=== PATIENT | female | born 1965 | race Caucasian/White ===

== ENCOUNTER → 2016-12-02 | Outpatient (CLI) | payer BC, OTHER ==
[~2016-12-02] MED LIST: CTLP20T PO; DEXL60CA5 PO; SCR1T PO
--- NOTE | 2016-12-03 15:45 | Diagnostic Imaging Report ---
Bilateral screening mammogram 2D views with tomosynthesis The current study was also evaluated with a Computer Aided Detection (CAD) system. INDICATION: Screening. No current complaints stated on the questionnaire. COMPARISON: 08/10/2014. FINDINGS: The breasts are composed of scattered fibroglandular densities. Punctate calcifications are seen. Allowing for technique and positional differences, no suspicious change is seen. IMPRESSION: No significant change. ACR BI-RADS Category 2: Benign findings. Result letter will be mailed to the patient. Note: At least 10% of breast cancer is not imaged by mammography. Dictated by: Dictated on workstation # [id number]
== END ==
LOC: RAD 14:43
PROVIDERS: ATTEND Obstetrics & Gynecology
DX: Z12.31 Encounter for screening mammogram for malignant neoplasm of breast (principal)
CPT/HCPCS: 77067

== ENCOUNTER → 2017-04-05 | Outpatient (CLI) | payer BC ==
--- NOTE | 2017-04-05 19:41 | Diagnostic Imaging Report ---
INDICATION: Right upper quadrant abdominal pain. Gallbladder sonography performed in the routine fashion. FINDINGS: The liver shows normal echogenicity with no focal lesion. Gallbladder was unremarkable with no gallstones or wall thickening. Common duct measured 4 mm. Pancreas is not well-seen due to overlying gas. Right kidney measured 8.5 cm in length and showed no hydronephrosis. There is no ascites. Portal vein is patent. IMPRESSION: Unremarkable gallbladder sonography. Dictated by: Dictated on workstation # [id number]
== END ==
LOC: RAD 15:09
PROVIDERS: ATTEND Nurse Practitioner Family
DX: R10.11 Right upper quadrant pain (principal)
CPT/HCPCS: 76705

== ENCOUNTER 2017-04-10 13:15 | Emergency (ER) | payer BC ==
[~2017-04-10] VITALS: Ht 167.6 cm; Wt 86.2 kg
--- OUTSIDE RECORDS SUMMARY | 2017-04-10 13:20 | XMS REPORT | Continuity of Care Document ---
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 11/05/2010 Ot 620.1 CORPUS LUTEUM CYST 11/05/2010 Ot 621.2 HYPERTROPHY OF UTERUS 11/05/2010 Ot 625.6 FEM STRESS INCONTINENCE 03/25/2012 Ot 455.0 INT HEMORRHOID W/O COMPL 03/25/2012 Ot 530.11 REFLUX ESOPHAGITIS 03/25/2012 Ot 535.40 OTH SPECIFIED GASTRITIS,W/O MENTION OF H 03/25/2012 Ot 553.3 DIAPHRAGMATIC HERNIA 03/25/2012 Ot 562.10 DIVERTICULOSIS COLON (W/O MENT OF HEMORR 03/25/2012 Ot 564.00 UNSPEC CONSTIPATION 03/25/2012 Ot 787.91 DIARRHEA 08/10/2014 Ot 611.89 08/10/2014 Ot V76.12 08/10/2014 Ot V76.12 08/10/2014 Ot 285.9 08/10/2014 Ot 621.2 08/10/2014 Ot 625.6 08/10/2014 Ot V72.63 08/10/2014 Ot V74.8 08/10/2014 Ot 786.2 08/10/2014 Ot V72.84 08/10/2014 Ot 562.10 08/10/2014 Ot 789.00 08/10/2014 Ot 789.00 08/10/2014 Ot 789.00 08/10/2014 Ot 786.50 08/10/2014 LAWANDA BRUCE MD Ot 397.0 08/10/2014 LAWANDA BRUCE MD Ot 424.0 08/10/2014 LAWANDA BRUCE MD Ot 786.09 08/10/2014 AJNIS CLEVELAND, LAWANDA Portillo Ot 786.50 08/10/2014 KELLEN GUTIERREZ VACUUM DRIER TENDER Ot 786.09 08/10/2014 KELLEN GUTIERREZ VACUUM DRIER TENDER Ot 787.20 08/10/2014 KELLEN GUTIERREZ R VACUUM DRIER TENDER Ot 789.00 08/10/2014 KELLEN GUTIERREZ R VACUUM DRIER TENDER Ot 786.09 08/10/2014 KELLEN GUTIERREZ VACUUM DRIER TENDER Ot 787.20 08/10/2014 KELLEN GUTIERREZ VACUUM DRIER TENDER Ot 789.00 08/10/2014 CRUZ CLEVELAND, PAT Bobby Ot V76.12 08/14/2014 CRUZ CLEVELAND, PAT Bobby Ot V76.12 03/06/2015 CRUZ CLEVELAND, PAT Bobby Ot V76.12 11/01/2015 Ot V76.12 OTH SCREEN MAMMO-MALIGN NEOPLASM OF [place] 11/01/2015 Ot 285.9 ANEMIA NOS 11/01/2015 Ot 621.2 HYPERTROPHY OF UTERUS 11/01/2015 Ot 625.6 FEM STRESS INCONTINENCE 11/01/2015 Ot V72.63 PRE-PROCEDURAL LABORATORY EXAMINATION 11/01/2015 Ot V74.8 SCREEN-BACTERIAL DIS NEC 11/01/2015 Ot 786.2 COUGH 11/01/2015 Ot V72.84 EXAM PRE-OPERATIVE NOS 11/01/2015 Ot 562.10 DIVERTICULOSIS COLON (W/O MENT OF HEMORR 11/01/2015 Ot 789.00 ABDOMINAL PAIN, UNSPECIFIED SITE 11/01/2015 Ot 789.00 ABDOMINAL PAIN, UNSPECIFIED SITE 11/01/2015 Ot 789.00 ABDOMINAL PAIN, UNSPECIFIED SITE 11/01/2015 Ot 786.50 CHEST PAIN NOS 11/01/2015 LAWANDA BRUCE MD Ot 397.0 TRICUSPID VALVE DISEASE 11/01/2015 LAWANDA BRUCE MD Ot 424.0 MITRAL VALVE DISORDER 11/01/2015 LAWANDA BRUCE MD Ot 786.09 RESPIRATORY ABNORM NEC 11/01/2015 LAWANDA BRUCE MD Ot 786.50 CHEST PAIN NOS 11/01/2015 KELLEN GUTIERREZ APRN Ot 786.09 RESPIRATORY ABNORM NEC 11/01/2015 KELLEN GUTIERREZ VACUUM DRIER TENDER Ot 787.20 DYSPHAGIA, UNSPECIFIED 11/01/2015 MATT, KELLEN R VACUUM DRIER TENDER Ot 789.00 ABDOMINAL PAIN, UNSPECIFIED SITE 11/01/2015 KELLEN GUTIERREZ VACUUM DRIER TENDER Ot 786.09 RESPIRATORY ABNORM NEC 11/01/2015 KELLEN GUTIERREZ VACUUM DRIER TENDER Ot 787.20 DYSPHAGIA, UNSPECIFIED 11/01/2015 KELLEN GUTIERREZ VACUUM DRIER TENDER Ot 789.00 ABDOMINAL PAIN, UNSPECIFIED SITE 11/01/2015 CRUZ CLEVELAND, PAT G Ot V76.12 OTH SCREEN MAMMO-MALIGN NEOPLASM OF [place] 11/06/2015 Ot V76.12 OTH SCREEN MAMMO-MALIGN NEOPLASM OF [place] 11/06/2015 Ot 285.9 ANEMIA NOS 11/06/2015 Ot 621.2 HYPERTROPHY OF UTERUS 11/06/2015 Ot 625.6 FEM STRESS INCONTINENCE 11/06/2015 Ot V72.63 PRE-PROCEDURAL LABORATORY EXAMINATION 11/06/2015 Ot V74.8 SCREEN-BACTERIAL DIS NEC 11/06/2015 Ot 786.2 COUGH 11/06/2015 Ot V72.84 EXAM PRE-OPERATIVE NOS 11/06/2015 Ot 562.10 DIVERTICULOSIS COLON (W/O MENT OF HEMORR 11/06/2015 Ot 789.00 ABDOMINAL PAIN, UNSPECIFIED SITE 11/06/2015 Ot 789.00 ABDOMINAL PAIN, UNSPECIFIED SITE 11/06/2015 Ot 789.00 ABDOMINAL PAIN, UNSPECIFIED SITE 11/06/2015 Ot 786.50 CHEST PAIN NOS 11/06/2015 JANIS CLEVELAND, LAWANDA Portillo Ot 397.0 TRICUSPID VALVE DISEASE 11/06/2015 LAWANDA BRUCE MD Ot 424.0 MITRAL VALVE DISORDER 11/06/2015 LAWANDA BRUCE MD Ot 786.09 RESPIRATORY ABNORM NEC 11/06/2015 LAWANDA BRUCE MD Ot 786.50 CHEST PAIN NOS 11/06/2015 KELLEN GUTIERREZ VACUUM DRIER TENDER Ot 786.09 RESPIRATORY ABNORM NEC 11/06/2015 KELLEN GUTIERREZ VACUUM DRIER TENDER Ot 787.20 DYSPHAGIA, UNSPECIFIED 11/06/2015 KELLEN GUTIERREZ VACUUM DRIER TENDER Ot 789.00 ABDOMINAL PAIN, UNSPECIFIED SITE 11/06/2015 KELLEN GUTIERREZ VACUUM DRIER TENDER Ot 786.09 RESPIRATORY ABNORM NEC 11/06/2015 KELLEN GUTIERREZ VACUUM DRIER TENDER Ot 787.20 DYSPHAGIA, UNSPECIFIED 11/06/2015 KELLEN GUTIERREZ VACUUM DRIER TENDER Ot 789.00 ABDOMINAL PAIN, UNSPECIFIED SITE 11/06/2015 CRUZ CLEVELAND, PAT Bobby Ot V76.12 OTH SCREEN MAMMO-MALIGN NEOPLASM OF [place] 01/06/2016 Ot V76.12 OTH SCREEN MAMMO-MALIGN NEOPLASM OF [place] 01/06/2016 Ot 285.9 ANEMIA NOS 01/06/2016 Ot 621.2 HYPERTROPHY OF UTERUS 01/06/2016 Ot 625.6 FEM STRESS INCONTINENCE 01/06/2016 Ot V72.63 PRE-PROCEDURAL LABORATORY EXAMINATION 01/06/2016 Ot V74.8 SCREEN-BACTERIAL DIS NEC 01/06/2016 Ot 786.2 COUGH 01/06/2016 Ot V72.84 EXAM PRE-OPERATIVE NOS 01/06/2016 Ot 562.10 DIVERTICULOSIS COLON (W/O MENT OF HEMORR 01/06/2016 Ot 789.00 ABDOMINAL PAIN, UNSPECIFIED SITE 01/06/2016 Ot 789.00 ABDOMINAL PAIN, UNSPECIFIED SITE 01/06/2016 Ot 789.00 ABDOMINAL PAIN, UNSPECIFIED SITE 01/06/2016 Ot 786.50 CHEST PAIN NOS 01/06/2016 JANIS CLEVELAND, LAWANDA Portillo Ot 397.0 TRICUSPID VALVE DISEASE 01/06/2016 LAWANDA BRUCE MD Ot 424.0 MITRAL VALVE DISORDER 01/06/2016 JNAIS CLEVELAND, LAWANDA Portillo Ot 786.09 RESPIRATORY ABNORM NEC 01/06/2016 JANIS CLEVELAND, LAWANDA Portillo Ot 786.50 CHEST PAIN NOS 01/06/2016 KELLEN GUTIERREZ VACUUM DRIER TENDER Ot 786.09 RESPIRATORY ABNORM NEC 01/06/2016 KELLEN GUTIERREZ VACUUM DRIER TENDER Ot 787.20 DYSPHAGIA, UNSPECIFIED 01/06/2016 KELLEN GUTIERREZ VACUUM DRIER TENDER Ot 789.00 ABDOMINAL PAIN, UNSPECIFIED SITE 01/06/2016 KELLEN GUTIERREZ VACUUM DRIER TENDER Ot 786.09 RESPIRATORY ABNORM NEC 01/06/2016 KELLEN GUTIERREZ VACUUM DRIER TENDER Ot 787.20 DYSPHAGIA, UNSPECIFIED 01/06/2016 KELLEN GUTIERREZ VACUUM DRIER TENDER Ot 789.00 ABDOMINAL PAIN, UNSPECIFIED SITE 01/06/2016 CRUZ CLEVELAND, PAT Bobby Ot V76.12 OTH SCREEN MAMMO-MALIGN NEOPLASM OF [place] 12/01/2016 PAT ARROYO MD Ot V76.12 OTH SCREEN MAMMO-MALIGN NEOPLASM OF [place] 12/01/2016 PAT ARROYO MD, Ot V76.12 OT SCREEN MAMMO-MALIGN NEOPLASM OF [place] 12/16/2016 PAT ARROYO MD Ot Z12.31 ENCNTR SCREEN MAMMOGRAM FOR MALIGNANT NE 04/05/2017 PAT ARROYO MD, Ot Z12.31 ENCNTR SCREEN MAMMOGRAM FOR MALIGNANT NE Procedures Code Description Performed By Performed On 59.79 11/03/2010 65.61 11/03/2010 68.51 11/03/2010 70.50 11/03/2010 77250 ROUTINE VENIPUNCTURE 01/05/2014 31892 HEMOGLOBIN (IN-HOUSE) 01/05/2014 31882 GLUCOSE FINGER STICK 01/05/2014 44696 LIPID PANEL 01/05 Results Encounters ACCT No. Visit Date/Time Discharge Status Pt. Type Provider Facility Loc./Unit Complaint [id number] 01/05/2014 10:14:00 01/05/2014 23: 59:59 CLS Outpatient GERMÁN MARLIN WU [id number] 04/05/2017 15:09:00 2016 23:59:59 CLS Outpatient ELVIRA MEANS APRN [facility] RAD RIGHT UPPER QUADRANT PAIN [id number] 12/02/2016 14:43:00 2016 23:59:59 CLS Outpatient PAT ARROYO MD [facility] RAD SCREENING [id number] 08/10/2014 14:54:00 2014 23:59:59 CLS Outpatient PAT ARROYO MD [facility] RAD SCREENING [id number] 02/24/2013 15:28:00 2012 23:59:59 CLS Outpatient PAT ARROYO MD [facility] RAD SCREENING [id number] 09/26/2012 09:58:00 2012 23:59:59 CLS Outpatient KELLEN GUTIERREZ APRN [facility] RAD ABD PAIN,CYSTAGIC [id number] 09/22/2012 14:32:00 2012 23:59:59 CLS Outpatient KELLEN GUTIERREZ APRN [facility] LAB ABDOMINAL PAIN [id number] 09/06/2012 12:21:00 2012 23:59:59 CLS Outpatient JANIS CLEVELAND, LAWANDA Portillo [facility] CP,DYSPNEA [id number] 08/10/2014 14:52:00 Document Registration [id number] 08/10/2014 14:52:00 Document Registration [id number] 08/10/2014 14:52:00 Document Registration [id number] 08/10/2014 14:52:00 Document Registration [id number] 08/10/2014 14:52:00 Document Registration [id number] 08/10/2012 15:36:00 Document Registration [id number] 06/23/2012 08:16:00 Document Registration [id number] 05/16/2012 15:10:00 Document Registration [id number] 03/25/2012 09:47:00 Document Registration [id number] 02/23/2011 15:51:00 Document Registration [id number] 11/03/2010 05:45:00 Document Registration [id number] 10/30/2010 12:56:00 Document Registration [id number] 09/01/2010 08:18:00 Document Registration
--- OUTSIDE RECORDS SUMMARY | 2017-04-10 13:20 | XMS REPORT ---
Author CONCETTA Akers Organization [employer] Address Unknown Phone Unavailable Care Team Providers Care Digital Imaging Technician Name Role Phone CONCETTA JOYCE CP Unavailable Allergies No Known Allergies Problems Problem Type Condition Code Onset Dates Condition Status Assessment Encounter for immunization Z23 Active Medications No Known Medications Procedures Procedure Coding System Code Date FLUARIX QUAD (3 & UP)-GSK-2014 CPT-4 77615 Mar 19, 2015 SINGLE IMMUNIZATION ADMIN CPT-4 99124 Mar 19, 2015 TDAP (BOOSTRIX) CPT-4 62386 Mar 19, 2015 IMMUNIZATION ADMIN, EACH ADD (please include units) CPT-4 64418 Mar 19, 2015 Results No Known Results Immunizations Vaccine Administration Date FLUARIX QUAD (3 & UP)-GSK-2014Mar 19, 2015 TDAP (BOOSTRIX) Mar 19, 2015 Summary Purpose [employer] Submission
[2017-04-10] MEDS ORDERED: ONDANSETRON 4 MG/2 ML (SDV) Z0FRAN IVP ONE (13:45)
[2017-04-10] MEDS ORDERED: fentaNYL INJECTION 100 MCG/2 ML AMP IVP ONE ×2 (13:45→15:45)
--- NOTE | 2017-04-10 13:48 | ED General ---
General Chief Complaint: General Problems/Pain Stated Complaint: SOA Nursing Triage Note: ARRIVED VIA AMB TO ROOM 06. COMPLAINS OF CONTINUING RIGHT UPPER ABD PAIN THAT RADIATES INTO MUNIRA BACK. COMPLAINS OF SOA WITH IT. STATES SHE HAS HAD HER GALLBLADDER CHECKED OUT AND IT IS NOT THAT. THE DR JUST DX HER WITH SOME OF KIND OF INFECTION "SOMEWHERE". Nursing Sepsis Screen: No Definite Risk Source of Information: Patient Exam Limitations: No Limitations History of Present Illness Time Seen by Provider: 13:45 Initial Comments To ER with c/o right sided abdominal pain and epigastric pain sudden onset about 45 minutes ago while vacuuming. Associated nausea, no vomiting. Diarrhea x1. Has had this problem intermittently for years with workups including EGD, colonoscopy, RUQ US, HIDA scan without answer. Pain is worsened by deep breathing, she then presents shallow and she states that her hands start to tingle. Timing/Duration: 1-3 Hours Severity: Moderate Associated Systoms: Nausea/Vomiting Allergies and Home Medications Allergies Coded Allergies: Penicillins (Unverified Allergy, Unknown, RASH, 04/10/17) Home Medications Citalopram Hydrobromide 20 Mg Tablet, 1 EACH PO HS, (Reported) Dexlansoprazole 60 Mg , 60 MG PO DAILY, (Reported) Sucralfate 1 Gm/10 Ml Susp, 2 TSP PO AC, (Reported) Constitutional: see HPI, No chills, No fever EENTM: see HPI Respiratory: see HPI, short of breath Cardiovascular: no symptoms reported Gastrointestinal: abdominal pain, nausea Genitourinary: no symptoms reported Musculoskeletal: no symptoms reported Skin: no symptoms reported Psychiatric/Neurological: No Symptoms Reported Hematologic/Lymphatic: No Symptoms Reported Immunological/Allergic: no symptoms reported Past Yctgdyf-Txfdzf-Osrqwp Hx Patient Social History Alcohol Use: Denies Use Recreational Drug Use: No Smoking Status: Never a Smoker Recent Foreign Travel: No Contact w/Someone Who Travel: No Recent Infectious Disease Expo: No Recent Hopitalizations: No Immunizations Up To Date Date of Influenza Vaccine: Feb 23, 2012 Surgeries History of Surgeries: Yes Surgeries: Hysterectomy Respiratory History of Respiratory Disorde: No Cardiovascular History of Cardiac Disorders: No (BLOOD CLOT) Cardiac Disorders: Heart Murmur Neurological History of Neurological Disord: No Reproductive System Hx Reproductive Disorders: Yes (UTEROMEGALY, FIBROIDS) Gastrointestinal History of Gastrointestinal Di: No Musculoskeletal History of Musculoskeletal Dis: No Endocrine History of Endocrine Disorders: Yes Endocrine Disorders: Hypothyroidsim Psychosocial History of Psychiatric Problem: Yes Blood Transfusions History of Blood Disorders: Yes (HX OF BLOOD CLOT IN 1998) Physical Exam Vital Signs Vital Sign - Last 12Hours 04/10/17 13:31 Temp 98.0 Pulse 89 Resp 18 B/P (MAP) 165/84 (111) Pulse Ox 100 Capillary Refill : Less Than 3 Seconds General Appearance: No Apparent Distress, WD/WN Eyes: Bilateral Eye Normal Inspection, Bilateral Eye PERRL, Bilateral Eye EOMI HEENT: PERRL/EOMI, TMs Normal Neck: Full Range of Motion, Normal Inspection, Non Tender Respiratory: Normal Breath Sounds, No Accessory Muscle Use, No Respiratory Distress Cardiovascular: Regular Rate, Rhythm, Normal Peripheral Pulses Gastrointestinal: Normal Bowel Sounds, Soft, Tenderness Extremity: Normal Capillary Refill, Normal Inspection Neurologic/Psychiatric: Alert, Oriented x3, No Motor/Sensory Deficits Skin: Normal Color, Warm/Dry Progress/Results/Core Measures Suspected Sepsis Recent Fever Within 48 Hours: No Infection Criteria Present: Documented Infection New/Unexplained Altered Menta: No Sepsis Screen: No Definite Risk Sepsis Diagnosis: SIRS Temperature:98.0 Pulse: 89 Respiratory Rate: 18 Laboratory Tests 04/10/17 14:00: White Blood Count 21.7H Blood Pressure 165 /84 Mean: 111 Laboratory Tests 04/10/17 14:00: Creatinine 0.94, Platelet Count 223, Total Bilirubin 0.5 Results/Orders Lab Results Laboratory Tests Test 04/10/17 14:00 04/10/17 14:51 Range/Units White Blood Count 21.7 H 4.3-11.0 10^3/uL Red Blood Count 4.72 4.35-5.85 10^6/uL Hemoglobin 14.0 11.5-16.0 G/DL Hematocrit 41 35-52 % Mean Corpuscular Volume 86 80-99 FL Mean Corpuscular Hemoglobin 30 25-34 PG Mean Corpuscular Hemoglobin Concent 34 32-36 G/DL Red Cell Distribution Width 12.3 10.0-14.5 % Platelet Count 223 130-400 10^3/uL Mean Platelet Volume 11.8 H 7.4-10.4 FL Neutrophils (%) (Auto) 94 H 42-75 % Lymphocytes (%) (Auto) 5 L 12-44 % Monocytes (%) (Auto) 1 0-12 % Eosinophils (%) (Auto) 0 0-10 % Basophils (%) (Auto) 0 0-10 % Neutrophils # (Auto) 20.3 H 1.8-7.8 X 10^3 Lymphocytes # (Auto) 1.1 1.0-4.0 X 10^3 Monocytes # (Auto) 0.3 0.0-1.0 X 10^3 Eosinophils # (Auto) 0.0 0.0-0.3 10^3/uL Basophils # (Auto) 0.0 0.0-0.1 10^3/uL D-Dimer 0.33 0.00-0.49 UG/ML Sodium Level 140 135-145 MMOL/L Potassium Level 3.8 3.6-5.0 MMOL/L Chloride Level 102 98-107 MMOL/L Carbon Dioxide Level 25 21-32 MMOL/L Anion Gap 13 5-14 MMOL/L Blood Urea Nitrogen 12 7-18 MG/DL Creatinine 0.94 0.60-1.30 MG/DL Estimat Glomerular Filtration Rate > 60 BUN/Creatinine Ratio 13 Glucose Level 97 70-105 MG/DL Calcium Level 9.4 8.5-10.1 MG/DL Total Bilirubin 0.5 0.1-1.0 MG/DL Aspartate Amino Transf (AST/SGOT) 12 5-34 U/L Alanine Aminotransferase (ALT/SGPT) 13 0-55 U/L Alkaline Phosphatase 79 40-136 U/L Total Protein 7.9 6.4-8.2 GM/DL Albumin 4.2 3.2-4.5 GM/DL Lipase 34 8-78 U/L Urine Color YELLOW Urine Clarity CLEAR Urine pH 7 5-9 Urine Specific Holder 1.010 L 1.016-1.022 Urine Protein NEGATIVE NEGATIVE Urine Glucose (UA) NEGATIVE NEGATIVE Urine Ketones NEGATIVE NEGATIVE Urine Nitrite NEGATIVE NEGATIVE Urine Bilirubin NEGATIVE NEGATIVE Urine Urobilinogen NORMAL NORMAL MG/DL Urine Leukocyte Esterase NEGATIVE NEGATIVE Urine RBC (Auto) NEGATIVE NEGATIVE Urine RBC NONE /HPF Urine WBC NONE /HPF Urine Squamous Epithelial Cells 0-2 /HPF Urine Crystals NONE /LPF Urine Bacteria NEGATIVE /HPF Urine Casts NONE /LPF Urine Mucus NEGATIVE /LPF Urine Culture Indicated NO My Orders Orders - NIEVES WEBB HVAC SERVICE TECH Cbc With Automated Diff (04/10/17 13:44) Comprehensive Metabolic Panel (04/10/17 13:44) Lipase (04/10/17 13:44) Saline Lock/Iv-Start (04/10/17 13:44) Ua Culture If Indicated (04/10/17 13:44) Ondansetron Injection (Zofran Injectio (04/10/17 13:45) Fentanyl Injection (Sublimaze Injection (04/10/17 13:45) Iohexol Injection (Omnipaque 350 Mg/Ml 1 (04/10/17 14:00) Ns (Ivpb) (Sodium Chloride 0.9% Ivpb Bag (04/10/17 14:00) Fibrin Degradation Products (04/10/17 14:05) Manual Differential (04/10/17 14:00) Ct Chest/Abdomen/Pelvis W (04/10/17 14:16) Ketorolac Injection (Toradol Injection) (04/10/17 15:00) Hydrocodone/Apap 5/325 Tablet (Lortab 5 (04/10/17 15:00) Medications Given in ED Current Medications Medications Dose Ordered Sig/Maroc A Route Start Time Stop Time Status Last Admin Dose Admin Fentanyl Citrate 50 mcg ONCE ONCE IVP 04/10/17 13:45 04/10/17 13:46 DC 04/10/17 13:59 50 MCG Iohexol 100 ml ONCE ONCE IV 04/10/17 14:00 04/10/17 14:01 DC 04/10/17 14:44 100 ML Ondansetron HCl 4 mg ONCE ONCE IVP 04/10/17 13:45 04/10/17 13:46 DC 04/10/17 13:59 4 MG Sodium Chloride 100 ml ONCE ONCE IV 04/10/17 14:00 04/10/17 14:01 DC 04/10/17 14:44 80 ML Vital Signs/I&O Vital Sign - Last 12Hours 04/10/17 13:31 Temp 98.0 Pulse 89 Resp 18 B/P (MAP) 165/84 (111) Pulse Ox 100 Capillary Refill : Less Than 3 Seconds Blood Pressure Mean: 111 Diagnostic Imaging Diagonstic Imaging: CT Comments NAME: JESUS JOSEPH MED REC#: [id number] PT STATUS: REG ER : 1965 PHYSICIAN: NIEVES WEBB APRN ADMIT DATE: 04/10/17/ER Draft Date of Exam:04/10/17 CT CHEST/ABDOMEN/PELVIS W PROCEDURE: CT chest, abdomen, and pelvis with contrast. TECHNIQUE: Multiple contiguous axial images were obtained through the chest, abdomen, and pelvis after the administration of intravenous contrast. INDICATION: Right lower quadrant pain. The previous CT abdomen/pelvis exam of 05/17/2012 noted diverticulosis of the sigmoid colon but failed to show any sign of acute diverticulitis. On this study, there are a few diverticula involving the sigmoid and descending colon. There is still no evidence for acute diverticulitis. The appendix was visualized and is not abnormally thickened. There is no pelvic mass or free fluid collection. As noted on the prior exam, the uterus is surgically absent. The urinary bladder is grossly unremarkable. The liver is homogeneous and not enlarged. The spleen, pancreas, adrenals, kidneys, gallbladder, aorta and inferior vena cava show no sign of an acute abnormality. The stomach is not well-distended and consequently difficult to assess. The images through the thorax show the heart size is within normal limits. Aorta is not abnormally dilated and there is no sign of dissection. 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 There is no definite defect within the pulmonary arteries to indicate a pulmonary embolus. There is no mediastinal or hilar adenopathy. There are patchy areas of increased density in both the right middle lobe and lingula. These findings may be related to mild pneumonia/atelectasis. There is no pleural effusion identified. The thyroid gland is unremarkable. There is no obvious breast mass. The bone windows show no sign of a fracture or destructive lesion. There does seem to be osteitis pubis. IMPRESSION: 1. There is diverticulosis of the sigmoid and descending colon but there is no sign of acute diverticulitis. 2. There is no acute abnormality of the abdomen or pelvis noted otherwise. 3. The areas of increased density in the right middle lobe and lingula may be related to mild pneumonia/atelectasis. Clinical followup is recommended. 4. There is no acute cardiopulmonary abnormality noted otherwise. 5. 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 Dictated on workstation # [id number] Dict: 04/10/17 1452 Trans: 04/10/17 1502 KB [id number] Interpreted by: SUNNI ABERNATHY MD Electronically signed by: Departure Impression Impression: Primary Impression: diverticulitis of the descending and transverse colon Additional Impression: Right middle lobe pneumonia Disposition: 01 HOME, SELF-CARE Condition: Stable Departure-Patient Inst. Decision time for Depature: 14:56 Referrals: BENJA GARCIA DO (PCP/Family) Primary Care Physician Patient Instructions: Community-Acquired Pneumonia in Adults, Diverticulitis Add. Discharge Instructions: 1. Clear liquids only for the next 24 hours. This would be anything that you can see through.nausea medication as needed in addition to the antibiotics and pain medication. Return to ER if the nausea prevents you from being able to take the antibiotics. Follow-up with Dr. Garcia next week. All discharge instructions reviewed with patient and/or family. Voiced understanding. Scripts Metronidazole (Flagyl) 500 Mg Tablet 500 MG PO TID, #15 TAB Prov: NIEVES WEBB APRN 04/10/17 Levofloxacin (Levaquin) 500 Mg Tablet 500 MG PO DAILY for 5 Days, TAB Prov: NIEVES WEBB APRN 04/10/17 Hydrocodone/Acetaminophen ([place] 5-325 Tablet) 1 Each Tablet 1 EACH PO Q4H Y for PAIN-SEVERE, #14 TAB Prov: NIEVES WEBB APRN 04/10/17 NIEVES WEBB APRN Apr 10, 2017 13:48
[2017-04-10] MEDS ORDERED: IOHEXOL 350 MG/ML 100 ML (OMNIPAQUE 350) VIAL IV ONE (14:00)
[2017-04-10] MEDS ORDERED: NS 100 ML (IVPB) BAG IV ONE (14:00)
[2017-04-10 14:11] LABS: BASOPHILS % (AUTO) 0 % (0-10); EOSINOPHILS % (AUTO) 0 % (0-10); LYMPHOCYTES # (AUTO) 1.1 X 10^3 (1.0-4.0); LYMPHOCYTES % (AUTO) 5 % (12-44); MEAN CORPUSCULAR HEMOGLOBIN 30 PG (25-34); MEAN CORPUSCULAR HGB CONC 34 G/DL (32-36); MEAN CORPUSCULAR VOLUME 86 FL (80-99); MEAN PLATELET VOLUME 11.8 FL (7.4-10.4); MONOCYTES # (AUTO) 0.3 X 10^3 (0.0-1.0); MONOCYTES % (AUTO) 1 % (0-12); NEUTROPHILS # (AUTO) 20.3 X 10^3 (1.8-7.8); NEUTROPHILS % (AUTO) 94 % (42-75); PLATELET COUNT 223 10^3/uL (130-400); RED BLOOD COUNT 4.72 10^6/uL (4.35-5.85); RED CELL DISTRIBUTION WIDTH 12.3 % (10.0-14.5); WHITE BLOOD COUNT 21.7 10^3/uL (4.3-11.0)
[2017-04-10 14:27] LABS: ALANINE AMINOTRANSFERASE 13 U/L (0-55); ALBUMIN 4.2 GM/DL (3.2-4.5); ANION GAP 13 MMOL/L (5-14); ASPARTATE AMINO TRANSFERASE 12 U/L (5-34); BILIRUBIN,TOTAL 0.5 MG/DL (0.1-1.0); BLOOD UREA NITROGEN 12 MG/DL (7-18); BUN/CREATININE RATIO 13; CALCIUM 9.4 MG/DL (8.5-10.1); CARBON DIOXIDE 25 MMOL/L (21-32); CHLORIDE 102 MMOL/L (98-107); CREATININE SERUM 0.94 MG/DL (0.60-1.30); GFR ESTIMATED > 60; GLUCOSE 97 MG/DL (70-105); LIPASE 34 U/L (8-78); POTASSIUM 3.8 MMOL/L (3.6-5.0); SODIUM 140 MMOL/L (135-145); TOTAL PROTEIN 7.9 GM/DL (6.4-8.2)
[2017-04-10 14:57] LABS: BILIRUBIN,URINE NEGATIVE (NEGATIVE); KETONES,URINE NEGATIVE (NEGATIVE); LEUKOCYTE ESTERASE ,URINE NEGATIVE (NEGATIVE); NITRITE,URINE NEGATIVE (NEGATIVE); PH,URINE 7 (5-9); PROTEIN,URINE NEGATIVE (NEGATIVE); UROBILINOGEN,URINE NORMAL (NORMAL)
[2017-04-10] MEDS ORDERED: KETOROLAC 30 MG/ML VIAL IVP ONE (15:00)
[2017-04-10] MEDS ORDERED: HYDROcodone/APAP 5 MG/325 MG (LORTAB) TAB PO ONE (15:00)
--- NOTE | 2017-04-10 15:03 | Diagnostic Imaging Report ---
PROCEDURE: CT chest, abdomen, and pelvis with contrast. TECHNIQUE: Multiple contiguous axial images were obtained through the chest, abdomen, and pelvis after the administration of intravenous contrast. INDICATION: Right lower quadrant pain. The previous CT abdomen/pelvis exam of 05/17/2012 noted diverticulosis of the sigmoid colon but failed to show any sign of acute diverticulitis. On this study, there are again a few diverticula involving the sigmoid and descending colon. There are other diverticula also scattered throughout the remainder of the colon, particularly in the region of the hepatic flexure. There is still no evidence for acute diverticulitis involving any segment of the colon, however.. The appendix was visualized and is not abnormally thickened. There is no pelvic mass or free fluid collection. As noted on the prior exam, the uterus is surgically absent. The urinary bladder is grossly unremarkable. The liver is homogeneous and not enlarged. The spleen, pancreas, adrenals, kidneys, gallbladder, aorta and inferior vena cava show no sign of an acute abnormality. The stomach is not well-distended and consequently difficult to assess. The images through the thorax show the heart size is within normal limits. Aorta is not abnormally dilated and there is no sign of dissection. 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 There is no definite defect within the pulmonary arteries to indicate a pulmonary embolus. There is no mediastinal or hilar adenopathy. There are patchy areas of increased density in both the right middle lobe and lingula. These findings may be related to mild pneumonia/atelectasis. There is no pleural effusion identified. The thyroid gland is unremarkable. There is no obvious breast mass. The bone windows show no sign of a fracture or destructive lesion. There does seem to be osteitis pubis. IMPRESSION: 1. There is diverticulosis of the colon, particularly the sigmoid and descending colon, but there is no sign of acute diverticulitis. 2. There is no acute abnormality of the abdomen or pelvis noted otherwise. 3. The areas of increased density in the right middle lobe and lingula may be related to mild pneumonia/atelectasis. Clinical followup is recommended. 4. There is no acute cardiopulmonary abnormality noted otherwise. 5. 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 6. These results were discussed with Gaurav Coello APRN. Dictated by: Dictated on workstation # [id number]
[2017-04-10 15:21] LABS: SQUAMOUS EPITHELIAL CELL,UR 0-2 /HPF
[2017-04-10 15:35] LABS: BAND NEUTROPHILS 3 %; LYMPHOCYTES % (MANUAL) 4 %; NEUTROPHILS % (MANUAL) 92 %
[2017-04-10 15:36] LABS: STOMATOCYTES SLIGHT
[2017-04-10] MEDS ORDERED: LEVO500T2 PO (15:37)
[2017-04-10] MEDS ORDERED: HYDR-757 PO (15:37)
[2017-04-10] MEDS ORDERED: METR500T PO (15:37)
[2017-04-10] MEDS ORDERED: metroNIDAZOLE 500 MG (FLAGYL) TAB PO ONE (15:45)
[2017-04-10] MEDS ORDERED: LEVOFLOXACIN 750 MG TAB (LEVAQUIN) PO ONE (15:45)
[2017-04-10 16:01] VITALS: BP 168/84
== END 2017-04-10 16:01 | disposition home or self-care (01) ==
LOC: EDUNIT# 13:15 → ER 13:16
DX: K57.32 Diverticulitis of large intestine without perforation or abscess without bleeding (principal); J18.1 Lobar pneumonia, unspecified organism; E03.9 Hypothyroidism, unspecified
CPT/HCPCS: 36415; 71260; 74177; 80053; 81000; 83690; 85007; 85027; 85379; 99282

== ENCOUNTER → 2017-04-16 | Outpatient (CLI) | payer BC ==
[~2017-04-16] MED LIST changes: +ATRACURIUM 50 MG/5 ML (TRACRIUM) IV ONE; +CATHETER FLUSH 10 ML SYR IV PRN; +CHOL3000 PO; +DULO60CA58 PO; +ESTR1TAB24 PO; +HYDR-3812 PO; +HYDR-757 PO; +LEVO500T2 PO; +LEVO50TA6 PO; +MAGN84TA5 PO; +METR500T PO
--- NOTE | 2017-04-16 13:28 | Diagnostic Imaging Report ---
INDICATION: Right upper quadrant pain. FINDINGS: 5.3 mCi of tech-99M Choletec was given IV. There is prompt uptake by the liver. There is prompt visualization of the gallbladder with free flow of isotope through the common duct into the small bowel. Patient was given 8 ounces of ensure. Following fatty meal images were obtained for 60 minutes. There was an ejection fraction calculated to be 16% at one hour post fatty meal. IMPRESSION: 1. The common bile duct and cystic ducts are patent. 2. Hypokinetic response of the gallbladder to fatty meal. Dictated by: Dictated on workstation # [id number]
== END ==
LOC: CARD 10:50
PROVIDERS: ATTEND Surgery
DX: R10.11 Right upper quadrant pain (principal); R11.0 Nausea
CPT/HCPCS: 78227

== ENCOUNTER → 2017-04-19 | Outpatient (CLI) | payer BC ==
[~2017-04-19] MED LIST changes: -ATRACURIUM 50 MG/5 ML (TRACRIUM) IV ONE; -CATHETER FLUSH 10 ML SYR IV PRN
== END ==
LOC: PREOP 11:18
PROVIDERS: ATTEND Surgery
DX: Z01.818 Encounter for other preprocedural examination (principal); K82.8 Other specified diseases of gallbladder

== ENCOUNTER 2017-04-20 10:24 | Day surgery (SDC) | payer BC ==
[~2017-04-20] VITALS: Ht 167.6 cm; Wt 83.9 kg
[~2017-04-20 10:24] MED LIST changes: -CHOL3000 PO; -DULO60CA58 PO; -ESTR1TAB24 PO; -HYDR-3812 PO; -LEVO50TA6 PO; -MAGN84TA5 PO
[2017-04-20] MEDS ORDERED: BUP/EPI 0.5% 1:200,000 (MARCAINE) 10ML VIAL IJ ONE (10:45)
[2017-04-20 10:46] VITALS: BP 147/80
[2017-04-20] MEDS ORDERED: SEVOFLURANE (ULTANE) 15 ML INHAL SOLN ONE ×5 (10:49→13:15)
[2017-04-20] MEDS ORDERED: proPOfol 200 MG/20 ML (DIPRIVAN) VIAL IV ONE (10:49)
[2017-04-20] MEDS ORDERED: HURRICAINE EXT TUBE (BENZOCAINE) ONE (10:49)
[2017-04-20] MEDS ORDERED: LIDOCAINE PF 2% 5 ML (XYLOCAINE) VIAL ONE (10:49)
[2017-04-20] MEDS ORDERED: DEXAMETHASONE 10 MG/ML (DECADRON) 1 ML VIAL ONE (10:49)
[2017-04-20] MEDS ORDERED: ATRACURIUM 50 MG/5 ML (TRACRIUM) IV ONE (10:50)
[2017-04-20] MEDS ORDERED: fentaNYL INJECTION 100 MCG/2 ML AMP ONE (10:50)
[2017-04-20] MEDS ORDERED: FAMOTIDINE 20MG/2ML IV (PEPCID) IV ONE (11:00)
[2017-04-20] MEDS ORDERED: MIDAZOLAM 2 MG/2 ML (VERSED) VIAL IV ONE (11:00)
[2017-04-20] MEDS ORDERED: metroNIDAZOLE 500 MG/100 ML IVPB (PRE-MIX) IV ONE (11:15)
[2017-04-20] MEDS: LACTATED RINGERS 1,000 ML IV PRN ×2 (11:24→13:16)
[2017-04-20] MEDS ORDERED: LEVOFLOXACIN 500 MG/D5W 100 ML (PRE-MIX) IV ONE (11:30)
[2017-04-20] MEDS ORDERED: CATHETER FLUSH 10 ML SYR IV PRN (11:30)
[2017-04-20] MEDS ORDERED: LEVO50TA6 PO (12:39)
[2017-04-20] MEDS ORDERED: ESTR1TAB24 PO (12:39)
[2017-04-20] MEDS ORDERED: DULO60CA58 PO (12:39)
[2017-04-20] MEDS ORDERED: MAGN84TA5 PO (12:39)
[2017-04-20] MEDS ORDERED: CHOL3000 PO (12:39)
[2017-04-20] MEDS ORDERED: ESMOLOL 100 MG/10 ML (BREVIBLOC) VIAL ONE (13:04)
--- NOTE | 2017-04-20 13:33 | Progress Note-Pre Operative ---
Pre-Operative Progress Note H&P Reviewed The H&P was reviewed, patient examined and no changes noted. Date Seen by Provider: Apr 15, 2017 Time Seen by Provider: 16:55 Date H&P Reviewed: Apr 20, 2017 Time H&P Reviewed: 11:55 Pre-Operative Diagnosis: Chronic acalculous cholecystitis JOCELINE RUSSELL MD Apr 20, 2017 1:32 pm
[2017-04-20] MEDS ORDERED: HYDR-3812 PO (13:37)
--- NOTE | 2017-04-20 13:37 | Operative Report ---
Operative Report Date of Procedure/Surgery Apr 20, 2017 Surgeon (s) JOCELINE RUSSELL MD [place] Machine Operator (s): N/A Post-Operative Diagnosis Same Procedure Performed Robotic-assisted cholecystectomy Description of Procedure Anesthesia Type: General Estimated blood loss (mL): Minimal Specimen(s) collected/removed Gallbladder Description of the Procedure Indication for the procedure: This lady presented with typical symptoms due to chronic acalculous cholecystitis. She was therefore offered cholecystectomy using minimally invasive technique with robotic assistance. Informed consent was obtained after reviewing the operative details and complications of wound infection, bile leak and persistence of her symptoms Description of the procedure: She was placed supine on the operative table and general anesthesia induced using an endotracheal tube. Antibiotics were administered intravenously as prophylaxis against wound infection. Sequential compression devices were placed around her legs, to minimize the risk of venous thrombosis. Abdomen was prepared and draped in the usual sterile manner. A supraumbilical incision was made and pneumoperitoneum established using a Veress needle. Intra -abdominal pressure was maintained at 15 mmHg, using carbon dioxide insufflation. A 12 mm trocar was placed and anatomy visualized using the high definition, 3-dimensional laparoscope, associated with it into system. Omentum was adherent to the epigastric region of the abdominal wall. Under direct view , I placed an 8 mm trocar over each side of the abdomen, followed by a 5 mm trocar over the left upper quadrant. Omentum was taken down using a blunt grasper allowing adequate view of the gallbladder fossa. The robotic system was then docked in place. By fundus of the gallbladder was retracted cephalad and omentum, adherent to the body of the gallbladder was taken down using the cautery. Peritoneum overlying Calot"s triangle was incised using the hook cautery, delineating the cystic duct and the artery. Both were controlled between locking clips. Cholecystectomy was then completed using the same device. Gallbladder was then placed in an Endo Catch bag and removed via the supraumbilical trocar site. The fascia over this incision was closed using #1 Vicryl using a Prem Falcon device under direct view. Skin incisions were closed using 4-0 Vicryl, in a subcuticular fashion. 0.5 percent Marcaine with epinephrine was infiltrated along the incisions, both preemptively and at the conclusion of the operation. She tolerated the procedure well, was extubated in the operating room and taken to the recovery room in a stable condition. Findings of the Procedure See op report Allergies and Home Medications Allergies Coded Allergies: Penicillins (Unverified Allergy, Unknown, RASH, 04/10/17) Home Medications Cholecalciferol (Vitamin D3) 3,000 Unit Tablet, 3,000 UNIT PO DAILY, (Reported) Duloxetine HCl 60 Mg Capsule.dr, 60 MG PO DAILY, (Reported) Estradiol 1 Mg Tablet, 1 MG PO DAILY, (Reported) Hydrocodone/Acetaminophen 1 Each Tablet, 1 EACH PO Q4H PRN for PAIN-SEVERE, #14 Prescribed by: NIEVES WEBB on 04/10/17 1537 Levothyroxine Sodium 50 Mcg Tablet, 50 MCG PO DAILY, (Reported) Magnesium l-Lactate 84 Mg Tablet.er, 84 MG PO BID, (Reported) JOCELINE RUSSELL MD Apr 20, 2017 1:36 pm
--- NOTE | 2017-04-20 13:38 | Discharge Inst-Simple/Standard ---
Discharge Inst-Standard Discharge Medications New, Converted or Re-Newed RX: RX on Chart Patient Instructions/Follow Up Plan of Care/Instructions/FU: Band-Aids off in 48 hours. Incentive spirometry. Follow-up in 3 weeks. Activity as Tolerated: Yes Discharge Diet: No Restrictions JOCELINE RUSSELL MD Apr 20, 2017 1:38 pm
[2017-04-20] MEDS ORDERED: GLYCOPYRROLATE 0.2 MG/ML (ROBINUL) 2 ML VIAL ONE (13:41)
[2017-04-20] MEDS ORDERED: NEOSTIGMINE (BLOXIVERZ ) 1 MG/1ML 10 ML VIAL ONE (13:41)
[2017-04-20] MEDS: morphine INJ 10 MG/ML 1ML (SYR OR VIAL) IVP PRN ×2 (13:48→13:53)
[2017-04-20] MEDS: HYDROmorphone (DILAUDID) 2 MG/ML VIAL IVP PRN ×2 (14:00→14:10)
[2017-04-20] MEDS ORDERED: KETOROLAC 30 MG/ML VIAL IVP ONE (14:00)
[2017-04-20 14:50] VITALS: BP 148/86
[2017-04-20] MEDS ORDERED: HYDROcodone/APAP 5 MG/325 MG (LORTAB) TAB PO PRN (15:15)
[2017-04-20] MEDS ORDERED: HYDROcodone/APAP 5 MG/325 MG (LORTAB) TAB ONE (15:30)
[2017-04-20 15:35] VITALS: BP 131/73
[2017-04-20 16:10] VITALS: BP 137/79
[2017-04-20] MEDS ORDERED: SCOPOLAMINE 1.5 MG (TRANSDERM-SCOP) PATCH ONE (17:14)
[2017-04-20 17:20] VITALS: BP 137/79
[2017-04-20] MEDS ORDERED: SCOPOLAMINE 1.5 MG (TRANSDERM-SCOP) PATCH TD ONE (17:30)
== END 2017-04-20 17:20 | disposition home or self-care (01) ==
LOC: SDC 10:24
PROVIDERS: ATTEND Surgery
DX: K81.1 Chronic cholecystitis (principal); K21.9 Gastro-esophageal reflux disease without esophagitis; K44.9 Diaphragmatic hernia without obstruction or gangrene; F32.9 Major depressive disorder, single episode, unspecified; E78.5 Hyperlipidemia, unspecified; K58.9 Irritable bowel syndrome, unspecified; Z87.01 Personal history of pneumonia (recurrent); Z79.899 Other long term (current) drug therapy
CPT/HCPCS: 87081; 94664

== ENCOUNTER → 2019-05-16 | Outpatient (CLI) | payer BC ==
[~2019-05-16] MED LIST changes: +ACHD5005 PO; +CHOL3000 PO; +DULO60CA59 PO; +ESTR1TAB24 PO; +HYDR-4226 PO; -HYDR-757 PO; +LEVO50TA6 PO; +MAGN84TA5 PO
--- NOTE | 2019-05-16 16:38 | Diagnostic Imaging Report ---
INDICATION: Pain in the left 5th finger. TIME OF EXAMINATION: 3:50 PM. TECHNIQUE: Three views of the left 5th finger were obtained. FINDINGS: There are some degenerative changes at the DIP joint of the 5th finger. No acute fracture is seen. The alignment is normal. The soft tissues are unremarkable. IMPRESSION: DIP joint degenerative change. No acute bony abnormality is detected. Dictated by: Dictated on workstation # [id number]
--- NOTE | 2019-05-16 17:16 | Diagnostic Imaging Report ---
INDICATION: Routine screening. COMPARISON: Comparison is made with prior mammograms from 12/02/2016 and 08/10/2014. TECHNIQUE: 2-D and 3-D bilateral screening mammography was performed. The current study was also evaluated with a Computer Aided Detection (CAD) system. 3-D tomosynthesis was also performed and reviewed. FINDINGS: Scattered fibroglandular densities are identified bilaterally. Circumscribed density in the upper-outer right breast is stable most consistent with benign etiology. No spiculated mass or malignant-appearing microcalcifications are seen. Axillae are unremarkable. IMPRESSION: No mammographic features suspicious for malignancy are identified. ACR BI-RADS Category 2: Benign findings. Result letter will be mailed to the patient. Note: At least 10% of breast cancer is not imaged by mammography. Dictated by: Dictated on workstation # [id number]
== END ==
LOC: RAD 15:25
PROVIDERS: ATTEND Family Medicine
DX: Z12.31 Encounter for screening mammogram for malignant neoplasm of breast (principal); M19.042 Primary osteoarthritis, left hand
CPT/HCPCS: 73140; 77067

== ENCOUNTER → 2020-05-20 | Outpatient (CLI) | payer BC ==
--- NOTE | 2020-05-20 16:42 | Diagnostic Imaging Report ---
INDICATION: Digital mammogram bilateral screening with CAD. INDICATION: Screening. COMPARISON: This study was compared to the prior exams of 05/16/2019, 12/02/2016, and 08/10/2014. PERSONAL HISTORY: At this time, there are no current complaints. FINDINGS: There are scattered fibroglandular densities in both breasts which could obscure a lesion. Overall, there does not appear to have been any significant change when compared to the prior exam. No primary or secondary sign of malignancy is noted. IMPRESSION: There is no radiographic evidence for malignancy. ACR BI-RADS Category 1: Negative. Result letter will be mailed to the patient. Note: At least 10% of breast cancer is not imaged by mammography. Dictated by: Dictated on workstation # [id number]
== END ==
LOC: RAD 15:03
PROVIDERS: ATTEND Family Medicine
DX: Z12.31 Encounter for screening mammogram for malignant neoplasm of breast (principal); I25.10 Atherosclerotic heart disease of native coronary artery without angina pectoris
CPT/HCPCS: 77063; 77067

== ENCOUNTER → 2021-05-29 | Outpatient (CLI) | payer BC ==
--- NOTE | 2021-05-30 09:26 | Diagnostic Imaging Report ---
INDICATION: Routine screening. COMPARISON is made with prior mammograms 05/20/2020 and 05/16/2019. 2-D and 3-D bilateral screening mammography was performed with CAD. Scattered fibroglandular densities are identified bilaterally. A benign nodule in the upper outer right breast appears stable. No spiculated mass or malignant-appearing microcalcifications are seen. Axillae are unremarkable. IMPRESSION: BI-RADS Category 2 No mammographic features suspicious for malignancy are identified. ACR BI-RADS Category 2: Benign findings. Result letter will be mailed to the patient. Note: At least 10% of breast cancer is not imaged by mammography. Dictated by: Dictated on workstation # [id number]
== END ==
LOC: RAD 15:37
PROVIDERS: ATTEND Family Medicine
DX: Z12.31 Encounter for screening mammogram for malignant neoplasm of breast (principal)
CPT/HCPCS: 77063; 77067

== ENCOUNTER → 2022-08-05 | Outpatient (CLI) | payer BC ==
--- NOTE | 2022-08-04 10:13 | HISTORY AND PHYSICAL ---
DATE OF SERVICE: 08/05/2022 PANENDOSCOPY HISTORY AND PHYSICAL HISTORY OF PRESENT ILLNESS: The patient is a 56-year-old white female referred by Dr. Garcia for diagnostic EGD and screening colonoscopy. She reports a past history of erosive esophagitis on EGD performed about 11 years ago. She also had reported peptic ulcer disease without GI bleeding at that time. She has been taking the proton pump inhibitors, but reports still has a burning epigastric and chest discomfort, will sometimes wake up choking at night with a bitter taste in the back of her throat. She denies any change in weight. Has had no melena and denies dysphagia. FAMILY HISTORY: She is not aware of any family history for GI tract malignancy including esophageal, gastric, or colon cancer. PAST MEDICAL HISTORY: Significant for the above, in addition to the hypothyroidism and patellofemoral syndrome that she was taking meloxicam for, this has recently stopped without any significant change in her reflux sounding symptoms. 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 She takes fexofenadine, Flonase nasal spray and montelukast 10 mg p.o. daily. She denies aspirin usage with no other nonsteroidal medications other than meloxicam that was recently stopped. PAST SURGICAL HISTORY: Significant for hysterectomy for benign reasons over 5 years ago. She has had a cholecystectomy in the past and tonsillectomy and adenoidectomy early as a child. 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 REVIEW OF SYSTEMS: CONSTITUTIONAL: Denies night sweats, chills, fever, change in weight. GI: As noted in the HPI. PULMONARY: Denies cough, wheezing or shortness of breath. CARDIOVASCULAR: Denies chest discomfort, dyspnea on exertion, orthopnea, PND, or pedal edema. PHYSICAL EXAMINATION: GENERAL: Reveals a pleasant white female, appears to be in no acute distress. VITAL SIGNS: Weight 175 pounds, blood pressure 120/72, heart rate 70 and regular. HEENT: Unremarkable. Sclerae nonicteric. CHEST: Clear to auscultation. CARDIOVASCULAR: Reveals a regular rate and rhythm without murmur, S3, or S4. ABDOMEN: Soft, supple without mass, organomegaly, or tenderness. EXTREMITIES: Revealed no cyanosis, clubbing or edema. ASSESSMENT AND PLAN: The patient is being set up for diagnostic EGD due to epigastric pain, reflux sounding symptoms, patient with history of erosive esophagitis and colonoscopy is being performed for screening purposes reporting last colonoscopy 11 years ago. Her first for which she does not recall any polyps. Prep instructions were given and questions were answered. I thank you for the referral of this pleasant lady. Job ID: [id number] DocumentID: [id number] Dictated Date: 08/04/2022 09:46:29 Reel Hooker Date: 08/04/2022 10:11:00 Dictated By: DOLLY MONDRAGON MD MTDD
--- NOTE | 2022-08-05 18:01 | Diagnostic Imaging Report ---
INDICATION: Routine screening. COMPARISON: Prior mammograms from 05/29/2021 and 05/20/2020. EXAMINATION: 2D and 3D bilateral screening mammography was performed with CAD. The current study was also evaluated with a Computer Aided Detection (CAD) system. FINDINGS: Scattered fibroglandular densities are identified, bilaterally. A density in the medial right breast mid depth appears more prominent on today's study. This may be superiorly located on the MLO view. Additional views are recommended. Left breast is unremarkable. No malignant-appearing microcalcifications are seen. IMPRESSION: Right breast density. Additional views are recommended for further evaluation. ACR BI-RADS Category 0: Incomplete. (Needs additional imaging evaluation). Result letter will be mailed to the patient. Note: At least 10% of breast cancer is not imaged by mammography. Dictated by: Dictated on workstation # [id number]
== END ==
LOC: RAD 15:04
PROVIDERS: ATTEND Nurse Practitioner Family
DX: Z12.31 Encounter for screening mammogram for malignant neoplasm of breast (principal)
CPT/HCPCS: 77063; 77067

== ENCOUNTER → 2022-08-19 | Outpatient (CLI) | payer BC ==
[~2022-08-19] VITALS: Ht 165.1 cm; Wt 79.4 kg
[~2022-08-19] MED LIST changes: +BACI1TAB3 PO; +BIOT10005 PO; +CLN.2T PO; +DOCU-26 PO; +FLUT9.9S NS; +MELO15TA39 PO; +MONT-40 PO; +NF-ALLE180 PO; +OMEG100032 PO; +SPIR100T4 PO
== END | disposition home or self-care (01) ==
LOC: PREOP 05:49
PROVIDERS: ATTEND Internal Medicine
DX: Z01.818 Encounter for other preprocedural examination (principal)

== ENCOUNTER → 2022-08-24 | Outpatient (CLI) | payer BC ==
--- NOTE | 2022-08-24 14:55 | Diagnostic Imaging Report ---
Indication: Right breast density. Patient presents for additional views. Unilateral right 2-D and 3-D diagnostic mammography was performed with CAD. This included spot compression CC and ML views as well as conventional 90 degrees lateral views. CAD is utilized. The current study was also evaluated with a Computer Aided Detection (CAD) system. There is a density in the upper right breast 6 cm from the nipple. This appears to be laterally located may represent fibro-glandular tissue. Even so, further evaluation of this area with ultrasound is recommended. The density noted slightly medial at anterior depth on this screening study appears to resolve with spot compression views may represent superimposed fibroid glandular tissue. Even so, interrogation of the medial right breast 2-3 cm from the nipple with ultrasound is recommended. No other abnormalities are seen. IMPRESSION: BI-RADS 0 Right breast densities, as described. Further evaluation with ultrasound is recommended and will be performed today. ACR BI-RADS Category 0: Incomplete. (Needs additional imaging evaluation). Result letter will be mailed to the patient. Note: At least 10% of breast cancer is not imaged by mammography. Dictated by: Dictated on workstation # [id number]
--- NOTE | 2022-08-24 15:37 | Diagnostic Imaging Report ---
INDICATION: Abnormal mammogram with right breast density. This study was performed for further evaluation. COMPARISON: Correlation is made with the screening mammogram from 08/05/2022 and diagnostic mammogram from earlier today. TECHNIQUE: Sonographic interrogation of the upper outer right breast at mid to posterior depth as well as the entire inner right breast 2 to 3 cm from the nipple was performed. FINDINGS: The medial right breast is unremarkable. No sonographic abnormality is seen. The density noted on the mammogram appears to resolve with additional views and most likely represented superimposed tissue. There is a benign-appearing hypoechoic nodule in the upper outer right breast of approximately 3 mm in size. No definite abnormality is seen to account for the density adjacent to this on the mammogram in the upper outer right breast. This most likely represents superimposed tissue. No suspicious sonographic finding is identified. IMPRESSION: Benign findings, as described. The patient may return to routine annual screening mammography. ACR BI-RADS Category 2: Benign findings. Result letter will be mailed to the patient. Note: At least 10% of breast cancer is not imaged by mammography. Dictated by: Dictated on workstation # [id number]
== END ==
LOC: RAD 14:15
PROVIDERS: ATTEND Family Medicine
DX: R92.2 Inconclusive mammogram (principal)
CPT/HCPCS: 76641; 77065; G0279

== ENCOUNTER 2022-08-28 08:44 | Day surgery (SDC) | payer BC ==
[~2022-08-28] VITALS: Ht 165.1 cm; Wt 79.4 kg
[2022-08-28] MEDS ORDERED: HURRICAINE EXT TUBE (BENZOCAINE) XX PRN (08:45)
[2022-08-28] MEDS ORDERED: LACTATED RINGERS 1,000 ML IV STA (08:45)
[2022-08-28] MEDS ORDERED: LACTATED RINGERS 1,000 ML IV ONE (08:49)
[2022-08-28] MEDS ORDERED: HURRICAINE EXT TUBE (BENZOCAINE) ONE (08:50)
[2022-08-28 09:06] VITALS: BP 142/77
--- NOTE | 2022-08-28 09:45 | Pre-Op Note & Conscious Sedat ---
Pre-Operative Progress Note Date H&P Reviewed: Aug 28, 2022 Time H&P Reviewed: 09:44 History & Physical: H&P Reviewed, Patient Examed, No changes noted Pre-Op Diagnosis: gerd and screening colon Moderate Sedation PreProcedure ASA Score 2 Airway Lungs Heart ASA score ASA 1: a normal healthy patient ASA 2: a patient with a mild systemic disease (mid diabetes, controlled hypertension, obesity ASA 3: a patient with a severe systemic disease that limits activity (angina, COPD, prior Myocardial infarction) ASA 4: a patient with an incapacitating disease that is a constant threat to life (CHF, renal failure) ASA 5: a moribund patient not expected to survive 24 hrs. (ruptured aneurysm) ASA 6: a declared brain- patient whose organs are being harvested. For emergent operations, add the letter E after the classification Mallampati Classification Grade 2 Sedation Plan Analgesia, Amnesia, Plan communicated to team members, Discussed options with patient/fam, Discussed risks with patient/fam The patient is an appropriate candidate to undergo the planned procedure, sedation, and anesthesia. The patient immediately re-assessed prior to indication. DOLLY MONDRAGON MD Aug 28, 2022 09:45
[2022-08-28] MEDS ORDERED: MIDAZOLAM 2 MG/2 ML (VERSED) VIAL ONE (10:15)
[2022-08-28] MEDS ORDERED: PROPOFOL INJECTION 50 ML IV ONE (10:15)
[2022-08-28 10:45] VITALS: BP 109/53
--- NOTE | 2022-08-28 10:49 | Progress Note-Post Operative ---
Post-Procedure Note Physician (s)/[employer] Officer (s) Physician DOLLY MONDRAGON MD Pre-Procedure Diagnosis Pre-Procedure Diagnosis: gerd and screening colon Post-Procedure Diagnosis Post-operative diagnosis: the patient was placed in the left lateral decubitus position. The endoscope was inserted into the oral cavity and under direct visualization and the esophagus is intubated. The endoscope was passed down the esophagus to stomach and second portion of the duodenum. A careful inspection was made as the endoscope withdrawn. Findings the posterior pharynx epiglottis arytenoid aperture and true and false vocal folds were unremarkable to visual inspection. The proximal mid and distal esophagus were unremarkable except for evidence for sphincter laxity with a 2 cm hiatal hernia. There is no evidence for erosive esophagitis. A biopsy was obtained and submitted from the GE junction. There is no evidence to suggest Hastings's change. 150 cc of fluid with a small amount of solid material without bezoar formation was noted suggesting the possibility of gastroparesis. Patient reported last oral intake was 5 hours prior to the procedure. There is deformity of the antrum compatible with previous history of peptic ulceration but no evidence for active ulceration was noted. There was some erythema noted in the antrum a biopsy was obtained and submitted for histopathology and Helicobacter evaluation. The pylorus pyloric channel duodenal bulb and second portion of the digit were unremarkable. A/P 1. There is evidence for sphincter laxity in the proximal 2 cm hiatal hernia without evidence for erosive esophagitis or Hastings's change. Findings compatible with antral ulceration with scarring were noted but no evidence for active peptic ulcer disease that was noted. The pylorus pyloric channel duodenal bulb and second portion and were unremarkable. We then proceeded with colonoscopy. Prior to undergoing colonoscopy digital rectal evaluation was performed. Anal sphincter tone was normal and the perianal reflexes intact. No abnormalities noted on digital inspection anal canal or distal rectal vault. The colonoscope was inserted into the rectum and under direct visualization advanced to the cecum. The cecum was identified by indication of the ileocecal valve and cecal strap. Photographic documentation was obtained. A careful inspection was made as the colonoscope withdrawn. Quality the prep was good. Findings there are no evidence for internal or external hemorrhoids and the rectum was unremarkable. Mild diverticular disease confined to the sigmoid colon was present but without evidence of diverticulitis. No other sigmoid colonic abnormalities are appreciated. The descending colon splenic flexure transverse colon hepatic flexure ascending colon and cecum were unremarkable. A/P 1. Mild diverticular disease confined to the sigmoid colon is present with an otherwise normal colonoscopy to the cecum. This is under good prep conditions. Would advocate consideration for repeat screening colonoscopy in 10 years. CC: DOLLY Whipple MD Aug 28, 2022 10:49
[2022-08-28 10:50] VITALS: BP 114/56
[2022-08-28 10:55] VITALS: BP 124/65
[2022-08-28 11:25] VITALS: BP 158/90
[2022-08-28 11:31] VITALS: BP 158/90
--- NOTE | 2022-08-28 12:34 | Anesthesia-General Post-Op ---
MAC Patient Condition Mental Status/LOC: Same as Preop Cardiovascular: Satisfactory Nausea/Vomiting: Absent Respiratory: Satisfactory Pain: Controlled Complications: Absent Post Op Complications Complications None Follow Up Care/Instructions Patient Instructions None needed. Anesthesiology Discharge Order Discharge Order Patient is doing well, no complaints, stable vital signs, no apparent adverse anesthesia problems. No complications reported per nursing. JACEK BALDWIN CRNA Aug 28, 2022 12:34
--- NOTE | 2022-09-01 14:15 | HISTORY AND PHYSICAL ---
DATE OF SERVICE: 08/05/2022 PANENDOSCOPY HISTORY AND PHYSICAL HISTORY OF PRESENT ILLNESS: The patient is a 56-year-old white female referred by Dr. Garcia for diagnostic EGD and screening colonoscopy. She reports a past history of erosive esophagitis on EGD performed about 11 years ago. She also had reported peptic ulcer disease without GI bleeding at that time. She has been taking the proton pump inhibitors, but reports still has a burning epigastric and chest discomfort, will sometimes wake up choking at night with a bitter taste in the back of her throat. She denies any change in weight. Has had no melena and denies dysphagia. FAMILY HISTORY: She is not aware of any family history for GI tract malignancy including esophageal, gastric, or colon cancer. PAST MEDICAL HISTORY: Significant for the above, in addition to the hypothyroidism and patellofemoral syndrome that she was taking meloxicam for, this has recently stopped without any significant change in her reflux sounding symptoms. 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 She takes fexofenadine, Flonase nasal spray and montelukast 10 mg p.o. daily. She denies aspirin usage with no other nonsteroidal medications other than meloxicam that was recently stopped. PAST SURGICAL HISTORY: Significant for hysterectomy for benign reasons over 5 years ago. She has had a cholecystectomy in the past and tonsillectomy and adenoidectomy early as a child. 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 REVIEW OF SYSTEMS: CONSTITUTIONAL: Denies night sweats, chills, fever, change in weight. GI: As noted in the HPI. PULMONARY: Denies cough, wheezing or shortness of breath. CARDIOVASCULAR: Denies chest discomfort, dyspnea on exertion, orthopnea, PND, or pedal edema. PHYSICAL EXAMINATION: GENERAL: Reveals a pleasant white female, appears to be in no acute distress. VITAL SIGNS: Weight 175 pounds, blood pressure 120/72, heart rate 70 and regular. HEENT: Unremarkable. Sclerae nonicteric. CHEST: Clear to auscultation. CARDIOVASCULAR: Reveals a regular rate and rhythm without murmur, S3, or S4. ABDOMEN: Soft, supple without mass, organomegaly, or tenderness. EXTREMITIES: Revealed no cyanosis, clubbing or edema. ASSESSMENT AND PLAN: The patient is being set up for diagnostic EGD due to epigastric pain, reflux sounding symptoms, patient with history of erosive esophagitis and colonoscopy is being performed for screening purposes reporting last colonoscopy 11 years ago. Her first for which she does not recall any polyps. Prep instructions were given and questions were answered. I thank you for the referral of this pleasant lady. Job ID: [id number] DocumentID: [id number] Dictated Date: 08/04/2022 09:46:29 Career Advisor Date: 08/04/2022 10:11:00 Dictated By: DOLLY MONDRAGON MD <Dictated by DOLLY MONDRAGON MD> <Electronically signed by DOLLY MONDRAGON MD> 08/06/22 0827 MTDD
== END 2022-08-28 11:32 ==
LOC: ENDO 08:44
PROVIDERS: ATTEND Internal Medicine
DX: Z12.11 Encounter for screening for malignant neoplasm of colon (principal); K21.00 Gastro-esophageal reflux disease with esophagitis, without bleeding; K31.89 Other diseases of stomach and duodenum; K44.9 Diaphragmatic hernia without obstruction or gangrene; K57.30 Diverticulosis of large intestine without perforation or abscess without bleeding; Z79.899 Other long term (current) drug therapy